=== PATIENT | female | born 1980 | race Caucasian/White ===

== ENCOUNTER 2019-12-30 13:35 | Emergency (ER) | payer BC ==
--- NOTE | 2019-12-30 14:29 | EDM.PDOC ---
ED HPI GENERAL MEDICAL PROBLEM - General Chief Complaint: Chest Pain Stated Complaint: SOB/CHEST PAIN Time Seen by Provider: 12/30/19 13:49 Source of Information: Reports: Patient History Limitations: Reports: No Limitations - History of Present Illness INITIAL COMMENTS - FREE TEXT/NARRATIVE: Patient is a 39-year-old female who presents to the emergency department with complaints of recurrent, intermittent chest pain with occasional shortness of breath. This has been an ongoing issue for her for quite some time. She had seen her primary care provider in July 2018 for similar symptoms and was placed on a Holter monitor. Results of this were found to be normal. She has not followed up with her primary care provider since that time. She states the symptoms occur 1-2 times per week. Describes it as tightness and pressure in her chest. Symptoms resolve with rest. She does occasionally have shortness of breath, however states that she does have a history of asthma and that when she uses her inhaler it improves. She had an episode of the chest tightness this morning. Symptoms have improved, however she does feel some slight tightness in her chest at this time. She does have a history of heartburn and acid reflux for which she uses Meenu-Tioga as needed. She is not currently on a daily PPI. Denies radiation of pain to her neck or arms. She has no history of blood clots or cardiac abnormalities. - Related Data Allergies Allergy/AdvReac Type Severity Reaction Status Date / Time No Known Allergies Allergy Verified 12/30/19 13:45 Home Meds: Home Meds Oxybutynin [Oxybutynin ER] 5 mg PO DAILY 12/30/19 [History] Past Medical History - Past Health History Medical/Surgical History: Denies Medical/Surgical History Genitourinary History: Reports: Other (See Below) Other Genitourinary History: overactive bladder Social & Family History - Tobacco Use Smoking Status *Q: Current Every Day Smoker Years of Tobacco use: 20 Packs/Tins Daily: 0.5 - Recreational Drug Use Recreational Drug Use: No ED ROS GENERAL - Review of Systems Review Of Systems: See Below Constitutional: Reports: No Symptoms. Denies: Fever, Chills, Weakness Respiratory: Reports: Shortness of Breath. Denies: Wheezing, Pleuritic Chest Pain, Cough Cardiovascular: Reports: Chest Pain. Denies: Dyspnea on Exertion, Lightheadedness, Palpitations GI/Abdominal: Reports: Other (Occasional heartburn). Denies: Abdominal Pain, Diarrhea, Nausea, Vomiting : Reports: No Symptoms Musculoskeletal: Reports: No Symptoms Skin: Reports: No Symptoms Neurological: Reports: No Symptoms Psychiatric: Reports: No Symptoms Hematologic/Lymphatic: Reports: No Symptoms Immunologic: Reports: No Symptoms ED EXAM, GENERAL - Physical Exam Exam: See Below General Appearance: Alert, WD/WN, No Apparent Distress Respiratory/Chest: No Respiratory Distress, Lungs Clear, Normal Breath Sounds, No Accessory Muscle Use, Chest Non-Tender Cardiovascular: Normal Peripheral Pulses, Regular Rate, Rhythm, No Edema, No Gallop, No JVD, No Murmur, No Rub GI/Abdominal: Normal Bowel Sounds, Soft, Non-Tender, No Organomegaly, No Distention, No Abnormal Bruit, No Mass Neurological: Alert, Oriented, CN II-XII Intact, Normal Cognition, Normal Gait, Normal Reflexes, No Motor/Sensory Deficits Psychiatric: Normal Affect, Normal Mood Skin Exam: Warm, Dry, Intact, Normal Color, No Rash EKG INTERPRETATION EKG Date: 12/30/19 Time: 13:56 Rhythm: NSR Rate (Beats/Min): 73 [place]: Normal P-Wave: Present QRS: Normal ST-T: Normal QT: Normal Course - Vital Signs Last Recorded V/S: Last Vital Signs Temp 97.8 F 12/30/19 13:42 Pulse 80 12/30/19 13:42 Resp 16 12/30/19 13:42 BP 125/74 12/30/19 13:42 Pulse Ox 95 12/30/19 13:42 - Orders/Labs/Meds Labs: Laboratory Tests 12/30/19 12/30/19 12/30/19 Range/Units 14:25 14:25 14:25 WBC 5.32 (3.98-10.04) K/mm3 RBC 4.57 (3.98-5.22) M/mm3 Hgb 13.5 (11.2-15.7) gm/dl Hct 41.7 (34.1-44.9) % MCV 91.2 (79.4-94.8) fl MCH 29.5 (25.6-32.2) pg MCHC 32.4 (32.2-35.5) g/dl RDW Std Deviation 42.2 (36.4-46.3) fL Plt Count 222 (182-369) K/mm3 MPV 10.2 (9.4-12.3) fl Neut % (Auto) 62.8 (34.0-71.1) % Lymph % (Auto) 27.4 (19.3-51.7) % [place] % (Auto) 6.0 (4.7-12.5) % Eos % (Auto) 3.0 (0.7-5.8) Baso % (Auto) 0.6 (0.1-1.2) % Neut # (Auto) 3.34 (1.56-6.13) K/mm3 Lymph # (Auto) 1.46 (1.18-3.74) K/mm3 [place] # (Auto) 0.32 (0.24-0.36) K/mm3 Eos # (Auto) 0.16 (0.04-0.36) K/mm3 Baso # (Auto) 0.03 (0.01-0.08) K/mm3 D-Dimer, Quantitative < 0.19 L (0.19-0.50) mg/L Sodium 140 (136-145) mEq/L Potassium 4.1 (3.5-5.1) mEq/L Chloride 104 (98-107) mEq/L Carbon Dioxide 29 (21-32) mEq/L Anion Gap 11.1 (5-15) BUN 10 (7-18) mg/dL Creatinine 0.9 (0.55-1.02) mg/dL Est Cr Clr Drug Dosing 69.42 mL/min Estimated GFR (MDRD) > 60 (>60) mL/min BUN/Creatinine Ratio 11.1 L (14-18) Glucose 92 (74-106) mg/dL Calcium 9.1 (8.5-10.1) mg/dL Total Bilirubin 0.2 (0.2-1.0) mg/dL AST 14 L (15-37) U/L ALT 17 (14-59) U/L Alkaline Phosphatase 78 (46-116) U/L Troponin I < 0.017 (0.00-0.056) ng/mL C-Reactive Protein < 0.2 (<1.0) mg/dL Total Protein 7.7 (6.4-8.2) g/dl Albumin 4.1 (3.4-5.0) g/dl Globulin 3.6 gm/dL Albumin/Globulin Ratio 1.1 (1-2) - Re-Assessments/Exams Free Text/Narrative Re-Assessment/Exam: 12/30/19 16:00 Patient's work-up was found to be grossly unremarkable. Hematology was normal. D-dimer negative, troponin negative. EKG showed no acute abnormalities. Chest x-ray was normal. Discussed possibilities of causes of chest pain including anxiety versus esophageal spasms. Patient does have a history of acid reflux that she treats symptomatically with Meenu-Tioga. Would have her start taking omeprazole daily to see if that improves her symptoms as she may be experiencing esophageal spasms.. Also recommend that she follow-up with her primary care provider at her next available visit. Return to the ER for any new or worsening symptoms of concern. Discharge instructions as documented. Departure - Departure Time of Disposition: 16:00 Disposition: Home, Self-Care 01 Condition: Good Clinical Impression: Atypical chest pain Instructions: Nonspecific Chest Pain, Adult Referrals: Emily Wood NP [Primary Care Provider] - Forms: ED Department Discharge Additional Instructions: You were seen in the emergency department today for intermittent chest pain that has been occurring for an extended period of time. Your work-up included blood work, EKG of your heart, and a chest x-ray. Your work-up was found to be normal. You do not have a blood clot in your lungs and you are not suffering from a heart attack. While the exact cause of your chest pain is not known, possibilities include muscle spasms of the chest wall, as well as esophageal spasms. Given your history of heartburn, I would recommend that you start taking Prilosec 20 mg daily. This may be purchased [id number]. If the cause of your pain is from esophageal spasms, this should result in improvement in symptoms. I would like you to follow-up with your primary care provider at her next available visit. Return to the ER for any new or worsening symptoms of concern. Sepsis Event Note (ED) - Evaluation Sepsis Screening Result: No Definite Risk - Focused Exam Vital Signs: Vital Signs Temp Pulse Resp BP Pulse Ox 12/30/19 13:42 97.8 F 80 16 125/74 95
--- NOTE | 2019-12-30 14:49 | CR ---
Chest: 2 views of the chest were obtained. Comparison: No previous chest imaging. Heart size and mediastinum are normal. Lungs are clear with no acute parenchymal change. Bony structures are unremarkable. Impression: 1. Nothing acute is seen on 2 view chest x-ray. Diagnostic code #1 This report was dictated in MDT
== END 2019-12-30 16:18 | disposition home or self-care (01) ==
LOC: JD.ED 13:35
DX: R07.89 Other chest pain (principal); R06.02 Shortness of breath; F17.210 Nicotine dependence, cigarettes, uncomplicated; Z79.899 Other long term (current) drug therapy
CPT/HCPCS: 36415; 71046; 71046-26; 80053; 84484; 85025; 85379; 86140; 93005; 93010; 99283; 99285-25

== ENCOUNTER 2020-01-21 06:58 | Day surgery (SDC) | payer BC ==
[~2020-01-21 06:58] MED LIST: Lactated Ringers 1,000 ML IV SCH; Lidocaine 1%/Sod Bicarbonate in NS 8.4% 1 ML Syringe IDERM PRN; Sodium Chloride 0.9% 10 ML Syringe FLUSH PRN
--- NOTE | 2020-01-21 07:19 | PCM.PREANE ---
Preanesthetic Assessment - Anesthesia/Transfusion/Family Hx Anesthesia History: Prior Anesthesia Without Reaction Family History of Anesthesia Reaction: No Transfusion History: No Prior Transfusion(s) - Review of Systems General: No Symptoms Pulmonary: No Symptoms Cardiovascular: Chest Pain (cardiac workup negative) Gastrointestinal: No Symptoms Neurological: No Symptoms Other: Reports: None - Physical Assessment NPO Status Date: 01/20/20 NPO Status Time: 22:00 ASA Class: 2 Mental Status: Alert & Oriented x3 Airway Class: Mallampati = 1 Dentition: Reports: Normal Dentition Thyro-Mental Finger Breadths: 3 Mouth Opening Finger Breadths: 3 ROM/Head Extension: Full Lungs: Clear to Auscultation, Normal Respiratory Effort - Allergies Allergies/Adverse Reactions: Allergies Allergy/AdvReac Type Severity Reaction Status Date / Time almond Allergy Cannot Verified 01/20/20 17:05 Remember carrot Allergy Cannot Verified 01/20/20 17:05 Remember celery Allergy Cannot Verified 01/20/20 17:05 Remember egg Allergy Cannot Verified 01/20/20 17:05 Remember peanut Allergy Cannot Verified 01/20/20 17:05 Remember shrimp Allergy Cannot Verified 01/20/20 17:05 Remember sunflower oil Allergy Cannot Verified 01/20/20 17:05 Remember - Acknowledgements Anesthesia Type Planned: MAC Pt an Appropriate Candidate for the Planned Anesthesia: Yes Alternatives and Risks of Anesthesia Discussed w Pt/Guardian: Yes Pt/Guardian Understands and Agrees with Anesthesia Plan: Yes PreAnesthesia Questionnaire - Past Health History Medical/Surgical History: Denies Medical/Surgical History HEENT History: Reports: Allergic Rhinitis Cardiovascular History: Reports: Other (See Below) Other Cardiovascular History: palpitations Respiratory History: Reports: Asthma (pt states cold, humidity induced, well controlled) Gastrointestinal History: Reports: GERD, Other (See Below) Other Gastrointestinal History: epigastric abdominal pain Genitourinary History: Reports: Other (See Below) Other Genitourinary History: overactive bladder [employer] History: Reports: None Musculoskeletal History: Reports: Other (See Below) Other Musculoskeletal History: substernal pain Neurological History: Reports: None Psychiatric History: Reports: Anxiety Endocrine/Metabolic History: Reports: None Hematologic History: Reports: None Immunologic History: Reports: None Oncologic (Cancer) History: Reports: None Dermatologic History: Reports: None - Infectious Disease History Infectious Disease History: Reports: None - Past Surgical History Head Surgeries/Procedures: Reports: None HEENT Surgical History: Reports: None Cardiovascular Surgical History: Reports: None Respiratory Surgical History: Reports: None GI Surgical History: Reports: None Female Surgical History: Reports: Hysterectomy, Oophorectomy Male Surgical History: Reports: None Endocrine Surgical History: Reports: None Neurological Surgical History: Reports: None Musculoskeletal Surgical History: Reports: None Oncologic Surgical History: Reports: None Dermatological Surgical History: Reports: None - SUBSTANCE USE Smoking Status *Q: Current Every Day Smoker Recreational Drug Use History: No - HOME MEDS Home Medications: Home Meds Albuterol [Take Home: Albuterol 18 GM, 1 INH Pack] 1 - 2 puff INH Q4H PRN 01/20/20 [History] Omeprazole Magnesium [Prilosec Otc] 20 mg PO BID 01/20/20 [History] - CURRENT (IN HOUSE) MEDS Current Meds: Current Medications Lactated Ringer's (Ringers, Lactated) 1,000 mls @ 125 mls/hr IV ASDIRECTED ANICETO Stop: 01/21/20 23:00 Lidocaine/Sodium Bicarbonate (Buffered Lidocaine 1% In Ns 8.4%) 0.25 ml IDERM ONETIME PRN PRN Reason: Prior to IV Start Stop: 01/21/20 18:00 Sodium Chloride (Saline Flush) 10 ml FLUSH ASDIRECTED PRN PRN Reason: Keep Vein Open Stop: 01/21/20 18:00
[2020-01-21] MEDS ORDERED: Lidocaine 1% 2 ML SDV ONE (07:31)
[2020-01-21] MEDS ORDERED: Propofol 200 MG/20 ML SDV ONE (07:31)
[2020-01-21] MEDS ORDERED: Midazolam 1 MG/ML 2 ML SDV ONE (07:32)
--- NOTE | 2020-01-21 08:21 | PCM48HPAN ---
Post Anesthesia Note - EVALUATION WITHIN 48HRS OF ANESTHETIC Vital Signs in Normal Range: Yes Patient Participated in Evaluation: Yes Respiratory Function Stable: Yes Airway Patent: Yes Cardiovascular Function Stable: Yes Hydration Status Stable: Yes Pain Control Satisfactory: Yes Nausea and Vomiting Control Satisfactory: Yes Mental Status Recovered: Yes Vital Signs: Last Vital Signs Temp 36.6 C 01/21/20 07:10 Pulse 72 01/21/20 07:10 Resp 16 01/21/20 07:10 BP 118/63 01/21/20 07:10 Pulse Ox 98 01/21/20 07:10
--- NOTE | 2020-01-21 10:33 | PCM.PRNOTE ---
- Free Text/Narrative Note: Date: 01/21/2020 Procedure: diagnostic esophagogastroduodenoscopy Endoscopist: Kendall Leiva MD Findings: grossly normal anatomy Detailed Report: The patient was taken to the endoscopy suite and placed in left lateral decubitus position. Time out was performed and monitored sedation initiated. A bite block was placed. The endoscope was inserted orally and advanced to the second portion of the duodenum with ease. No abnormalities were noted. A sample biopsy of the duodenal bulb was obtained with cold forceps. The antrum appeared normal; a sample of gastric mucosa was obtained with forceps at this site as well. No ulcers were seen. On retroflexion, there appeared to be no pathology of the fundus or cardia and no evidence of hiatal hernia. The Z-line appeared normal. There was no esophagitis. A sample biopsy just proximal to the Z line was obtained. The remainder of the esophagus looked normal. Air was suctioned from the stomach prior to complete withdrawal of the scope. The patient tolerated the procedure well.
== END 2020-01-21 09:00 | disposition home or self-care (01) ==
LOC: JD.SDS 06:58
PROVIDERS: ATTEND Surgery
DX: K29.50 Unspecified chronic gastritis without bleeding (principal); K20.0 Eosinophilic esophagitis; J45.909 Unspecified asthma, uncomplicated; K21.9 Gastro-esophageal reflux disease without esophagitis; F41.9 Anxiety disorder, unspecified; F17.210 Nicotine dependence, cigarettes, uncomplicated; Z79.899 Other long term (current) drug therapy; Z91.012 Allergy to eggs; Z91.013 Allergy to seafood; Z91.010 Allergy to peanuts
CPT/HCPCS: 43239; J2001; J2250; J2704; J7120; 00731